=== PATIENT | female | born 1980 | race African-American/Black ===

== ENCOUNTER 2019-08-13 11:06 | Outpatient (CLI) | payer OTHER ==
[2019-08-13] MEDS ORDERED: Iopamidol-370 76% 500 ML 1 ML ONE (12:42)
--- NOTE | 2019-08-13 14:02 | CT ---
ABDOMEN AND PELVIC CT SCAN WITH IV CONTRAST: HISTORY: Epigastric pain. History of hiatal hernia. History of pancreas surgery and splenectomy for benign p ancreatic mass. FINDINGS: The lung bases appear clear. Status post cholecystectomy without significant ductal dilatation. A 0 .7 cm nonobstructing renal calculus. Surgical clips at the region of the tail of the pancreas. Stat us post splenectomy. No evidence for adenopathy. IUD within the uterus. A 2.1 cm diameter nodular area of enhancement in the anterior uterine fundus region, possibly an intrauterine fibroid. No CT e vidence for acute appendicitis. No large or small bowel obstruction. IMPRESSION: Postop cholecystectomy and splenectomy. Nonobstructing 0.7 cm right renal calculus without evidence for acute obstruction. No evidence for acute appendicitis. Intrauterine device in place within t he uterus with 2.1 cm nodular area of enhancement, evidence for a probable intrauterine fibroid. POS: [facility]
== END 2019-08-13 11:07 | disposition home or self-care (01) ==
LOC: BICCT 11:06
PROVIDERS: ATTEND Physician Assistant Medical
DX: R10.13 Epigastric pain (principal); Z90.49 Acquired absence of other specified parts of digestive tract; N20.0 Calculus of kidney
CPT/HCPCS: 74177; Q9967